=== PATIENT | female | born 1995 | race Two or more races ===

== ENCOUNTER 2016-09-12 19:24 | Emergency (ER) | payer SELFPAY ==
[~2016-09-12] VITALS: Ht 142.2 cm; Wt 44.5 kg
[2016-09-12 19:53] VITALS: BP 133/90
[2016-09-12 20:15] LABS: BASOPHILS % (AUTO) 1.6 % (0.0-2.0); EOSINOPHILS % (AUTO) 12.9 % (0.0-3.0); LYMPHOCYTES % (AUTO) 32.1 % (20.0-45.0); MEAN CORPUSCULAR HEMOGLOBIN 32.5 PG (27.0-31.0); MEAN CORPUSCULAR HGB CONC 36.3 G/DL (32.0-36.0); MEAN CORPUSCULAR VOLUME 89 FL (80-99); MEAN PLATELET VOLUME 8.1 FL (6.5-10.1); MONOCYTES % (AUTO) 8.9 % (1.0-10.0); NEUTROPHILS % (AUTO) 44.5 % (45.0-75.0); PLATELET COUNT 259 K/UL (150-450); RED BLOOD COUNT 4.17 M/UL (4.20-5.40); RED CELL DISTRIBUTION WIDTH 11.4 % (11.6-14.8); WHITE BLOOD COUNT 8.2 K/UL (4.8-10.8)
[2016-09-12 20:34] LABS: ALANINE AMINOTRANSFERASE 26 U/L (3-33); ALBUMIN/GLOBULIN RATIO 1.5 (1.0-2.7); ANION GAP 16 (5-15); ASPARTATE AMINO TRANSFERASE 21 U/L (5-40); CALCIUM 9.3 mg/dL (8.6-10.2); CARBON DIOXIDE 24 mEQ/L (20-30); CHLORIDE 95 mEQ/L (98-107); CREATININE 0.5 mg/dL (0.5-0.9); GLOMERULAR FILTRATION RATE > 60 mL/min (>60); HEMOLYSIS 4; LIPASE 19 U/L (< 60); POTASSIUM 3.7 mEQ/L (3.4-4.9); SODIUM 135 mEQ/L (135-145); TOTAL PROTEIN 7.4 g/dL (6.6-8.7)
[2016-09-12 20:35] LABS: APPEARANCE,URINE CLEAR; KETONES,URINE 3+ (NEGATIVE); LEUKOCYTE ESTERASE ,URINE 2+ (NEGATIVE); NITRITE,URINE NEGATIVE (NEGATIVE); PH,URINE 6 (4.5-8.0); PROTEIN,URINE 1+ (NEGATIVE); UROBILINOGEN,URINE NORMAL MG/DL (0.0-1.0)
[2016-09-12 20:43] LABS: BACTERIA,URINE OCCASIONAL /HPF; SQUAMOUS EPITHELIAL CELL,UR OCCASIONAL /LPF (NONE/OCC)
--- NOTE | 2016-09-12 20:48 | Emergency Room Report ---
History of Present Illness General Chief Complaint: Vaginal Source: Patient (Livier Walsh) Present Illness HPI 21 YO Female presents to the ED c/o vaginal bleeding: x 1 day with cramping abdominal pain that is primarily on the left adnexal area.Pt rates her pain as 6 -7/10 in severity. exacerbated upon deep palpation. denies hx of ovarian cysts. Pt. had positive test at her OBGYN, she has not had US performed yet. Pt is with previous miscarriage. She denies nausea, vomiting, fevers, chills, constipation, diarrhea. Patient denies recent travel or illness. She denies trauma or fall. Denies hx of STI, or vaginal lesions. Denies CP, Palpitations, LOC, AMS, dizziness, Changes in Vision, Sensation, paresthesias, or a sudden severe headache. (Livier Walsh) Allergies: Coded Allergies: No Known Allergies (Unverified , 09/12/16) Patient History Past Medical History: see triage record Past Surgical History: none Pertinent Family History: none Last Menstrual Period: AROUND July Now: Yes - 4 WEEKS : 2 Para: 1 Reviewed Nursing Documentation: PMH: Agreed, PSxH: Agreed (Livier Walsh) Nursing Documentation-PMH Past Medical History: No Stated History (Livier Walsh) Review of Systems All Other Systems: negative except mentioned in HPI (Livier Walsh) Physical Exam Vital Signs Date Time Temp Pulse Resp B/P Pulse Ox O2 Delivery O2 Flow Rate FiO2 09/12/16 19:35 98.4 76 18 133/90 100 Room Air Sp02 EP Interpretation: reviewed, normal General Appearance: no apparent distress, alert, GCS 15, non-toxic Head: normocephalic, atraumatic Eyes: bilateral eye PERRL, bilateral eye normal inspection ENT: hearing grossly normal, normal pharynx, no angioedema, normal voice Neck: full range of motion, supple/symm/no masses Respiratory: chest non-tender, lungs clear, normal breath sounds, speaking full sentences Cardiovascular #1: regular rate, rhythm, no edema Gastrointestinal: normal bowel sounds, non tender, soft, no bruit, non- distended, no guarding, no rebound Rectal: deferred Genitourinary: normal inspection, no CVA tenderness, other - left adnexal ttp Musculoskeletal: back normal, gait/station normal, normal range of motion, non- tender Neurologic: alert, oriented x3, responsive, motor strength/tone normal, sensory intact, speech normal Psychiatric: judgement/insight normal, memory normal, mood/affect normal Skin: normal color, no rash, warm/dry, well hydrated (Livier Walsh) Medical Decision Making PA Attestation Dr. Reza is my supervising Physician whom patient management has been discussed with. (Livier Walsh) Diagnostic Impression: Primary Impression: Abdominal pain affecting Additional Impressions: Spotting during in first trimester Threatened in first trimester ER Course 21 YO Female presents to the ED c/o vaginal bleeding: x 1 day with cramping abdominal pain that is primarily on the left adnexal area. pt. had positive test at her OBGYN, she has not had US performed yet. Ddx considered but are not limited to: ovarian cyst, ectopic , Fibroid , Spontaneous ,subchorionic hemorrhage. Vital signs: are WNL, pt. is afebrile H&PE are most consistent with: Spotting during early , will r/o ectopic. ORDERS: -CBC: unremarkable -CMP: unremarkable -Lipase: WNL - UA: no evidence of infection, contamination present. -Urine hcg- Positive -serum Hcg Quant: [id number] - Blood/RH type and screen- see attached labs -Pelvic US complete- PENDING ED INTERVENTIONS: -650mg Tylenol PO DISCHARGE: At this time pt. is stable for d/c to home. Will provide printed patient care instructions, and any necessary prescriptions. Care plan and follow up instructions have been discussed with the patient prior to discharge. Labs Test 09/12/16 19:55 09/12/16 20:20 White Blood Count 8.2 K/UL (4.8-10.8) Red Blood Count 4.17 M/UL (4.20-5.40) Hemoglobin 13.6 G/DL (12.0-16.0) Hematocrit 37.3 % (37.0-47.0) Mean Corpuscular Volume 89 FL (80-99) Mean Corpuscular Hemoglobin 32.5 PG (27.0-31.0) Mean Corpuscular Hemoglobin Concent 36.3 G/DL (32.0-36.0) Red Cell Distribution Width 11.4 % (11.6-14.8) Platelet Count 259 K/UL (150-450) Mean Platelet Volume 8.1 FL (6.5-10.1) Neutrophils (%) (Auto) 44.5 % (45.0-75.0) Lymphocytes (%) (Auto) 32.1 % (20.0-45.0) Monocytes (%) (Auto) 8.9 % (1.0-10.0) Eosinophils (%) (Auto) 12.9 % (0.0-3.0) Basophils (%) (Auto) 1.6 % (0.0-2.0) Sodium Level 135 mEQ/L (135-145) Potassium Level 3.7 mEQ/L (3.4-4.9) Chloride Level 95 mEQ/L (98-107) Carbon Dioxide Level 24 mEQ/L (20-30) Anion Gap 16 (5-15) Blood Urea Nitrogen 12 mg/dL (7-23) Creatinine 0.5 mg/dL (0.5-0.9) Estimat Glomerular Filtration Rate > 60 mL/min (>60) Glucose Level 88 mg/dL (74-106) Calcium Level 9.3 mg/dL (8.6-10.2) Total Bilirubin 0.3 mg/dL (0.0-1.2) Aspartate Amino Transf (AST/SGOT) 21 U/L (5-40) Alanine Aminotransferase (ALT/SGPT) 26 U/L (3-33) Alkaline Phosphatase 57 U/L (35-104) Total Protein 7.4 g/dL (6.6-8.7) Albumin 4.5 g/dL (3.5-5.2) Globulin 2.9 g/dL Albumin/Globulin Ratio 1.5 (1.0-2.7) Lipase 19 U/L (< 60) Human Chorionic Gonadotropin, Quant 66487 mIU/mL Urine Color Pale yellow Urine Appearance Clear Urine pH 6 (4.5-8.0) Urine Specific [place] 1.020 (1.005-1.035) Urine Protein 1+ (NEGATIVE) Urine Glucose (UA) Negative (NEGATIVE) Urine Ketones 3+ (NEGATIVE) Urine Occult Blood 5+ (NEGATIVE) Urine Nitrite Negative (NEGATIVE) Urine Bilirubin Negative (NEGATIVE) Urine Urobilinogen Normal MG/DL (0.0-1.0) Urine Leukocyte Esterase 2+ (NEGATIVE) Urine RBC 5-10 /HPF (0 - 2) Urine WBC 2-4 /HPF (0 - 2) Urine Squamous Epithelial Cells Occasional /LPF Urine Bacteria Occasional /HPF (NONE) Urine HCG, Qualitative Positive (Livier Walsh) ER Course Since sign out to me. She presents with spotting and vaginal pain. She's only about 4 weeks . Ultrasound pending. Ultrasound showed early gestational sac of about 4 weeks. She has a left adnexal cyst. No torsion. Patient is pain-free now. (JULIA REYNOLDS M.D.) CT/MRI/US Diagnostic Results CT/MRI/US Diagnostic Results : Imaging Test Ordered: pelvic ultrasound Impression Read by preservative filler machine operator. Gestational sac without heartbeat. Left ovarian cyst. (JULIA REYNOLDS M.D.) Last Vital Signs Date Time Temp Pulse Resp B/P Pulse Ox O2 Delivery O2 Flow Rate FiO2 09/12/16 19:53 98.4 75 18 133/90 100 Room Air (Livier Walsh) Status: improved (JULIA REYNOLDS M.D.) Disposition: HOME, SELF-CARE Condition: Stable Signed Out To: Dr. Reynolds (Livier Walsh) Additional Instructions: Followup with RESPIRATORY SCIENTIST in 7 days. Return if worse. Livier Walsh Sep 12, 2016 20:48 JULIA REYNOLDS M.D. Sep 12, 2016 23:32
[2016-09-12 23:37] VITALS: BP 130/88
[2016-09-12 23:38] VITALS: BP 133/90
--- NOTE | 2016-09-13 17:05 | Diagnostic Imaging Report ---
Indication: PAIN, positive serum test Technique: Transabdominal and transvaginal images Comparison: None Findings: Uterus measures 7.6 cm length by 3.2 cm AP. Within the endometrium, there is a gestational sac with a visible decidual reaction. This contains a yolk sac, but no visible pole. The mean sac diameter is too small to calculate an estimated gestational age. Generated No myometrial abnormalities. Right ovary measures 1.8 cm length. Left ovary measures 2 cm length. No adnexal mass. No free cul-de-sac fluid. Impression: Endometrial gestational sac, too small to calculate estimated gestational age. No unusual features otherwise Negative for adnexal mass
== END 2016-09-12 23:40 | disposition home or self-care (01) ==
LOC: EMR 20:45
DX: O26.851 Spotting complicating pregnancy, first trimester (principal); Z3A.01 Less than 8 weeks gestation of pregnancy; O20.0 Threatened abortion
CPT/HCPCS: 36415; 76830; 76856; 80053; 81003; 81025; 83690; 84702; 85025; 86850; 86900; 86901; 99284